=== PATIENT | male | born 1975 | race Caucasian/White ===

== ENCOUNTER 2018-02-13 13:18 | Day surgery (SDC) | payer BC ==
[2018-02-13] MEDS ORDERED: LIDOCAINE 100 MG SYRINGE (14:32)
[2018-02-13] MEDS ORDERED: PROPOFOL 40 ML (14:32)
== END 2018-02-13 17:33 | disposition home or self-care (01) ==
LOC: GIL 13:18
DX: Z85.038 Personal history of other malignant neoplasm of large intestine (principal)
CPT/HCPCS: 45378